=== PATIENT | female | born 1980 | race Caucasian/White ===

== ENCOUNTER 2019-10-08 14:22 | Emergency (ER) | payer MEDICAID ==
--- NOTE | 2019-10-08 14:42 | ER Document Report ---
ED Medical Screen (RME) - General Stated Complaint: VAGINAL ISSUES Time Seen by Provider: 10/08/19 14:36 Notes: Patient is a 39-year-old female who presents to the emergency department with a tampon possibly stuck in her vagina. Patient states that 3 days ago she thought she was going to start her menstrual cycle and ended up putting a tampon in her vagina. Patient states that she was not able to get it out. States that she did not see it come out. Denies any discharge. Patient states that she did not have her menstrual cycle and she could possibly also be . Denies any pain, but admits to some cramping. Exam: Soft, nontender abdomen. Exam limited due to patient in sitting position. I have greeted and performed a rapid initial assessment of this patient. A comprehensive ED assessment and evaluation of the patient, analysis of test results and completion of medical decision making process will be conducted by an additional ED providers. Physical Exam - Vital signs Vitals: Temp Pulse Resp BP Pulse Ox 97.7 F 99 16 166/88 H 98 10/08/19 14:28 10/08/19 14:28 10/08/19 14:28 10/08/19 14:28 10/08/19 14:28 Course - Vital Signs Vital signs: Temp Pulse Resp BP Pulse Ox 97.7 F 99 16 166/88 H 98 10/08/19 14:28 10/08/19 14:28 10/08/19 14:28 10/08/19 14:28 10/08/19 14:28
--- NOTE | 2019-10-08 18:57 | ER Document Report ---
ED General - General Chief Complaint: Vaginal Pain Stated Complaint: VAGINAL ISSUES Time Seen by Provider: 10/08/19 14:36 Notes: 39 year old female presents emergency department stating that she put in a tampon 3 days ago and has not been able to remove it. Denies any fevers, complains of a small amount of crampy lower abdominal pain. Denies any vaginal discharge. 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 - Related Data Allergies/Adverse Reactions: naproxen [From Aleve] Allergy (Verified 10/08/19 18:04) Past Medical History - General Information source: Patient Last Menstrual Period: now - Social History Smoking Status: Current Every Day Smoker Chew tobacco use (# tins/day): No Frequency of alcohol use: None Drug Abuse: None Family History: Reviewed & Not Pertinent Patient has homicidal ideation: No - Past Medical History Cardiac Medical History: Reports: Hx Hypertension GI Medical History: Reports: Hx Gastroesophageal Reflux Disease Past Surgical History: Comment Only: Hx Section - pacemaker Review of Systems - Review of Systems Constitutional: No symptoms reported Female Genitourinary: See HPI -: Yes All other systems reviewed and negative Physical Exam - Vital signs Vitals: Temp 97.6 F 10/08/19 14:22 Interpretation: Hypertensive - General General appearance: Appears well, Alert In distress: None - HEENT Head: Normocephalic, Atraumatic Eyes: Normal Pupils: PERRL - Respiratory Respiratory status: No respiratory distress - Genitourinary External exam: Normal Speculum exam: Normal, Other - No tampon seen. Vaginal bleeding: None Bimanuel exam: Normal. No: Cervical motion tender - Neurological Neuro grossly intact: Yes Cognition: Normal Orientation: AAOx4 - Psychological Associated symptoms: Normal affect, Normal mood - Skin Skin Temperature: Warm Skin Moisture: Dry Skin Color: Normal Course - Re-evaluation Re-evalutation: 10/08/19 18:58 Pelvic exam performed, no tampon seen. Discharged home. - Vital Signs Vital signs: Temp Pulse Resp BP Pulse Ox 97.7 F 99 16 166/88 H 98 10/08/19 14:28 10/08/19 14:28 10/08/19 14:28 10/08/19 14:28 10/08/19 14:28 Discharge - Discharge Clinical Impression: Feared condition not demonstrated, lost tampon Condition: Stable Disposition: HOME, SELF-CARE Additional Instructions: There was no tampon found on examination. There were no signs of vaginal infection.
[2019-10-08 20:10] VITALS: BP 154/92
== END 2019-10-08 19:30 | disposition home or self-care (01) ==
LOC: ER 14:22
DX: Z71.1 Person with feared health complaint in whom no diagnosis is made (principal); R10.2 Pelvic and perineal pain; G83.14 Monoplegia of lower limb affecting left nondominant side; I10 Essential (primary) hypertension; F17.200 Nicotine dependence, unspecified, uncomplicated; Z88.8 Allergy status to other drugs, medicaments and biological substances
CPT/HCPCS: 81025; 99283

== ENCOUNTER 2019-11-24 15:51 | Emergency (ER) | payer MEDICAID, OTHER ==
[2019-11-24] MEDS: NORMAL SALINE 1000 ML 1,000 ML IV PRN ×2 (17:00→17:57)
--- NOTE | 2019-11-24 17:35 | ER Document Report ---
ED Heat Exposure - General Chief Complaint: Heat Exposure Stated Complaint: POSSIBLE HEAT EXHAUASTION Time Seen by Provider: 11/24/19 16:22 Mode of Arrival: Stretcher Information source: Patient, Emergency Med Personnel TRAVEL OUTSIDE OF THE [place] IN LAST 30 DAYS: No - HPI Onset: This morning Onset/Duration: Gradual, Persistent, Worse Quality of pain: Achy, Sharp Severity: Moderate Pain Level: 4 Cooling measures: Fan, Air conditioning Associated symptoms: Confusion, Increased temperature, Hot/dry skin, Nausea, Vomiting, Headache - Related Data Allergies/Adverse Reactions: chlorpheniramine [From Contac Cold-Flu Day and Night] Allergy (Verified 11/24/19 16:08) naproxen [From Aleve] Allergy (Verified 11/24/19 16:08) phenylephrine [From Contac Cold-Flu Day and Night] Allergy (Verified 11/24/19 16:08) Past Medical History - General Information source: Patient, Emergency Med Personnel - Social History Smoking Status: Current Every Day Smoker Cigarette use (# per day): Yes - Half pack a day Chew tobacco use (# tins/day): No Smoking Education Provided: Yes Frequency of alcohol use: None Drug Abuse: None Lives with: Family Family History: Reviewed & Not Pertinent Patient has homicidal ideation: No - Past Medical History Cardiac Medical History: Reports: Hx Hypertension Endocrine Medical History: Reports: Hx Diabetes Mellitus Type 2 GI Medical History: Reports: Hx Gastroesophageal Reflux Disease Past Surgical History: Comment Only: Hx Section - pacemaker Review of Systems - Review of Systems Constitutional: No symptoms reported EENT: No symptoms reported Cardiovascular: No symptoms reported Respiratory: See HPI, Short of breath Gastrointestinal: No symptoms reported Genitourinary: No symptoms reported Female Genitourinary: No symptoms reported Musculoskeletal: No symptoms reported Skin: No symptoms reported Hematologic/Lymphatic: No symptoms reported Neurological/Psychological: No symptoms reported -: Yes All other systems reviewed and negative Physical Exam - Vital signs Vitals: Temp Resp Pulse Ox 100.0 F 31 H 96 11/24/19 16:06 11/24/19 16:06 11/24/19 16:06 - Notes Notes: PHYSICAL EXAMINATION: GENERAL: Patient is a well-nourished well-developed 39-year-old female who is in no apparent distress on physical exam today although she is appears very weak and rundown. Patient is also morbidly obese. HEAD: Atraumatic, normocephalic. EYES: Pupils equal round and reactive to light, extraocular movements intact, conjunctiva are normal. ENT: Examination patient's head and upper airway showed nasal mucosa to be slightly moist and a little rhinorrhea. No frontal or maxillary sinus tenderness to palpation. Bilateral TMs appear enlarged without any retraction or bulging. Posterior pharynx shows the oral cavity to be moderately dry of the tongue also be dry. NECK: Normal range of motion, supple without lymphadenopathy LUNGS: Breath sounds clear to auscultation bilaterally and equal. No wheezes rales or rhonchi. HEART: Regular rate and rhythm without murmurs ABDOMEN: Soft, nontender, nondistended abdomen. No guarding, no rebound. No masses appreciated. Female : deferred Musculoskeletal: Normal range of motion, no pitting or edema. No cyanosis. NEUROLOGICAL: Cranial nerves grossly intact. Normal speech, normal gait. Normal sensory, motor exams PSYCH: Normal mood, normal affect. SKIN: Warm, Dry, normal turgor, no rashes or lesions noted. Course - Re-evaluation Re-evalutation: 11/24/19 21:14 After reviewing patient's labs her troponin came back at 0.249 her CK was at 214 her EKG originally showed sinus tachycardia. I went back in to discuss the patient the options we had done keeping her are letting her be transferred to another facility if that are structural steel painter here felt she needed to go and patient started tell me more of her history that she told me on original H&P. She states that now she remembers that original call to EMS was not just for heatstroke was because she was also having chest pain. And she also now denies having any vomiting. Patient further tells me that now that she has had a pacemaker placement done last year in [facility]. She also had a stroke about a year ago and has still residual deficits in the right lower and right upper extremities mostly with strength. She is currently taking Plavix and an aspirin a day and he is on atorvastatin lisinopril, Plavix, metoprolol, hydrochlorothiazide and she also has a history of COPD and continues to smoke half a pack of cigarettes a day. Most of which although that was not mentioned when I first interviewed the patient. And I specifically asked patient if she had any chest pain or shortness of breath prior to coming to the hospital and she inform you she did not. [id number] 11/25/19 01:10 I talked to the transfer center at [facility] and was eventually put through to a doctor Alicia on-call structural steel painter jany. After explaining the case to the him and after he reviewed the EKGs and the low labs he felt that it was a viable option to have patient be transferred to their facility and then to their service. Actually patient will be placed into the care of . I have been asked by them to find out the [place] prospect manager of her pacemaker I did approach patient will again she forgot her billfold at home and does not know the information. The nurse is supposed to be contacting a family member t here and getting that information and placing it in the chart. Second set of troponins are getting ready to be drawn now. I did also talk to the structural steel painter that he asked about our COVID testing here we do not have any of the stat reagent in order to run it here he informed me that would not be a problem they would do when she arrived at the facility. - Vital Signs Vital signs: Temp Pulse Resp BP Pulse Ox 98.7 F 16 149/74 H 93 11/24/19 20:39 11/24/19 23:01 11/24/19 23:00 11/24/19 23:01 - Laboratory Result Diagrams: 11/24/19 16:19 11/24/19 16:19 Laboratory results interpreted by me: 11/24/19 11/24/19 11/24/19 16:19 16:19 16:19 WBC 11.2 H Hgb 9.6 L Hct 30.4 L MCV 67 L MCH 21.4 L MCHC 31.7 L RDW 20.3 H Absolute Neuts (auto) 8.3 H Sodium 133.4 L Potassium 2.6 L* Est GFR (MDRD) Non-Af 51 L Glucose 136 H POC Glucose Magnesium 1.4 L Alkaline Phosphatase 131 H Creatine Kinase 214 H Total Protein 6.2 L Albumin 3.3 L Urine Protein Urine Blood Urine Urobilinogen Ur Leukocyte Esterase 11/24/19 11/24/19 16:46 17:35 WBC Hgb Hct MCV MCH MCHC RDW Absolute Neuts (auto) Sodium Potassium Est GFR (MDRD) Non-Af Glucose POC Glucose 146 H Magnesium Alkaline Phosphatase Creatine Kinase Total Protein Albumin Urine Protein 100 H Urine Blood LARGE H Urine Urobilinogen 4.0 H Ur Leukocyte Esterase MODERATE H Discharge - Discharge Clinical Impression: Elevated troponin Chest pain Qualifiers: Chest pain type: unspecified Qualified Code(s): R07.9 - Chest pain, unspecified Condition: Stable Disposition: [facility]
[2019-11-24 18:13] LABS: ABSOLUTE BASOPHILS # (AUTO) 0.1 10^3/uL (0.0-0.2); ABSOLUTE LYMPHOCYTES (AUTO) 1.9 10^3/uL (0.5-4.7); ABSOLUTE MONOCYTES (AUTO) 0.9 10^3/uL (0.1-1.4); ABSOLUTE NEUT (AUTO) 8.3 10^3/uL (1.7-8.2); BASOPHILS % (AUTO) 0.5 % (0-2); EOSINOPHILS % (AUTO) 0.4 % (0-6); HEMATOCRIT 30.4 % (36.0-47.0); HEMOGLOBIN 9.6 g/dL (12.0-15.5); LYMPHOCYTES % (AUTO) 17.4 % (13-45); MEAN CORPUSCULAR HEMOGLOBIN 21.4 pg (27.0-33.4); MEAN CORPUSCULAR HGB CONC 31.7 g/dL (32.0-36.0); MEAN CORPUSCULAR VOLUME 67 fl (80-97); MONOCYTES % (AUTO) 7.6 % (3-13); PLATELET COUNT 345 10^3/uL (150-450); RED BLOOD COUNT 4.51 10^6/uL (3.72-5.28); RED CELL DISTRIBUTION WIDTH 20.3 % (11.5-14.0); SEGMENTED NEUTROPHILS % (AUTO) 74.1 % (42-78); TOTAL CELLS COUNTED % (AUTO) 100 %; WHITE BLOOD COUNT 11.2 10^3/uL (4.0-10.5)
[2019-11-24 18:16] LABS: ALBUMIN 3.3 g/dL (3.5-5.0); ALKALINE PHOSPHATASE 131 U/L (38-126); ANION GAP 10 (5-19); ASPARTATE AMINO TRANSFERASE 25 U/L (14-36); BILIRUBIN,TOTAL 0.4 mg/dL (0.2-1.3); BLOOD UREA NITROGEN 11 mg/dL (7-20); CALCIUM 9.2 mg/dL (8.4-10.2); CARBON DIOXIDE 25 mmol/L (22-30); CHLORIDE 98 mmol/L (98-107); GLUCOSE 136 mg/dL (75-110); TOTAL PROTEIN 6.2 g/dL (6.3-8.2)
--- NOTE | 2019-11-24 18:16 | RADIOLOGY REPORT (SQ) ---
EXAM DESCRIPTION: CHEST SINGLE VIEW IMAGES COMPLETED DATE/TIME: 11/24/2019 4:57 pm REASON FOR STUDY: cough COMPARISON: None. EXAM PARAMETERS: NUMBER OF VIEWS: One view. TECHNIQUE: Single frontal radiographic view of the chest acquired. RADIATION DOSE: NA LIMITATIONS: None. FINDINGS: LUNGS AND PLEURA: No opacities, masses or pneumothorax. No pleural effusion. MEDIASTINUM AND HILAR STRUCTURES: No masses. Contour normal. HEART AND VASCULAR STRUCTURES: Heart normal in size. Normal vasculature. BONES: No acute findings. HARDWARE: Left infraclavicular pacemaker with intact lead wires. OTHER: No other significant finding. IMPRESSION: NO ACUTE RADIOGRAPHIC FINDING IN THE CHEST. TECHNICAL DOCUMENTATION: JOB ID: [id number] [employer]- All Rights Reserved Reading location - IP/workstation name: [email or web address]
[2019-11-24 18:19] LABS: APPEARANCE,URINE SLIGHTLY-CLOUDY; BILIRUBIN,URINE NEGATIVE (NEGATIVE); COLOR,URINE RED; GLUCOSE, URINE NEGATIVE (NEGATIVE); KETONES,URINE NEGATIVE (NEGATIVE); LEUKOCYTE ESTERASE,URINE MODERATE (NEGATIVE); NITRITE,URINE NEGATIVE (NEGATIVE); PROTEIN,URINE 100 mg/dL (NEGATIVE); URINE SPECIFIC GRAVITY 1.009
[2019-11-24 18:22] LABS: POTASSIUM 2.6 mmol/L (3.6-5.0)
--- NOTE | 2019-11-24 18:49 | EKG REPORT ---
SEVERITY:- BORDERLINE ECG - SINUS TACHYCARDIA QTC PROLONGATION. : Confirmed by: Danny Wilson MD 24-Nov-2019 18:48:57
[2019-11-24] MEDS ORDERED: POTASSIUM CHLORIDE 10 MEQ TABLET.ER PO ONE ×2 (18:53→21:06)
[2019-11-24 19:12] LABS: URINE AMPHETAMINES SCREEN NEGATIVE; URINE BARBITURATES SCREEN NEGATIVE; URINE BENZODIAZEPINES SCREEN NEGATIVE; URINE COCAINE SCREEN NEGATIVE; URINE MARIJUANA (THC) SCREEN NEGATIVE; URINE METHADONE SCREEN NEGATIVE; URINE PHENCYCLIDINE SCREEN NEGATIVE
[2019-11-24] MEDS ORDERED: HEPARIN SODIUM,PORCINE/D5W 25,000 UNIT/250 ML RTUINJ IV PRN (21:09)
[2019-11-24] MEDS ORDERED: HEPARIN SOD (PORCINE) 1,000 UNIT/ML 10 ML VIAL IV ONE (21:09)
[2019-11-24] MEDS ORDERED: ASPIRIN 325 MG TABLET PO ONE (21:11)
[2019-11-24 22:01] LABS: INTERNATIONAL RATION (INR) 0.98; PROTHROMBIN TIME 13.2 SEC (11.4-15.4)
[2019-11-24 22:02] LABS: PARTIAL THROMBOPLASTIN TIME 31.3 SEC (23.5-35.8)
[2019-11-24] MEDS: MAGNESIUM SULFATE/D5W 1 GM/100 ML RTUPB IV SCH ×2 (22:13→23:11)
[2019-11-25] MEDS ORDERED: HEPARIN SOD (PORCINE) 1,000 UNIT/ML 10 ML VIAL IV PRN (00:10)
[2019-11-25] MEDS ORDERED: MORPHINE SULFATE 10 MG/ML INJ IV ONE (00:21)
[2019-11-25 04:33] LABS: HEMATOCRIT 31.4 % (36.0-47.0); HEMOGLOBIN 9.9 g/dL (12.0-15.5); MEAN CORPUSCULAR HEMOGLOBIN 21.5 pg (27.0-33.4); MEAN CORPUSCULAR HGB CONC 31.6 g/dL (32.0-36.0); MEAN CORPUSCULAR VOLUME 68 fl (80-97); PLATELET COUNT 326 10^3/uL (150-450); RED BLOOD COUNT 4.62 10^6/uL (3.72-5.28); RED CELL DISTRIBUTION WIDTH 20.2 % (11.5-14.0)
[2019-11-25 05:24] VITALS: BP 134/67
--- NOTE | 2019-11-25 07:39 | EKG REPORT ---
SEVERITY:- ABNORMAL ECG - SINUS RHYTHM FIRST DEGREE AV BLOCK NONSPECIFIC T ABNORMALITIES, LATERAL LEADS : Confirmed by: Danny Wilson MD 25-Nov-2019 07:38:51
--- NOTE | 2019-11-25 07:42 | EKG REPORT ---
SEVERITY:- ABNORMAL ECG - SINUS RHYTHM FIRST DEGREE AVB [address] ELEVATION INFERIOR LEADS, CLINICAL CORRELATION NEEDED. : Confirmed by: Danny Wilson MD 25-Nov-2019 07:41:26
== END 2019-11-25 05:58 | disposition short-term general hospital (02) ==
LOC: ER 15:51
DX: R07.9 Chest pain, unspecified (principal); R79.89 Other specified abnormal findings of blood chemistry; R41.0 Disorientation, unspecified; J34.89 Other specified disorders of nose and nasal sinuses; J44.9 Chronic obstructive pulmonary disease, unspecified; F17.210 Nicotine dependence, cigarettes, uncomplicated; I10 Essential (primary) hypertension; E11.9 Type 2 diabetes mellitus without complications; E66.01 Morbid (severe) obesity due to excess calories; Z95.0 Presence of cardiac pacemaker; Z88.8 Allergy status to other drugs, medicaments and biological substances; Z79.02 Long term (current) use of antithrombotics/antiplatelets; Z79.82 Long term (current) use of aspirin; Z79.899 Other long term (current) drug therapy
CPT/HCPCS: 93005 ×2; 96376; 99285; 96361; 96375; 96365; 96366; 96367; 36415; 87040; 87086; 82553; 82962; 82550; 83690; 83735; 85025; 85027; 85610; 85730; 81025; 87088; 80053; 81001; 84484; 87186; 80307; 71045; 93010 ×2; J1644 ×2; J2270; J3475; J7030